=== PATIENT | female | born 1975 | race Caucasian/White ===

== ENCOUNTER 2020-09-09 13:01 | Inpatient (IN) | payer MEDICARE, MEDICAID ==
[~2020-09-09] VITALS: Ht 167.6 cm; Wt 120.4 kg
[2020-09-09] MEDS ORDERED: MAALOX/HYOSCYAMINE/LIDOCAINE 45 ML BTL PO ONE (14:00)
[2020-09-09] MEDS ORDERED: SODIUM CHLORIDE FLUSH 10ML SYR IVF ONE (14:00)
[2020-09-09] MEDS ORDERED: HYDROmorphone 1 MG/ML, 1ML INJ IV ONE (14:00)
[2020-09-09] MEDS ORDERED: ONDANSETRON 2MG/ML, 2ML IVPush ONE (14:00)
[2020-09-09] MEDS ORDERED: SODIUM CHLORIDE 0.9% 1,000ML IVBOLUS ONE (14:00)
[2020-09-09] MEDS ORDERED: MAALOX/HYOSCYAMINE/LIDOCAINE 45 ML BTL ONE (14:03)
[2020-09-09] MEDS ORDERED: ONDANSETRON 2MG/ML, 2ML ONE (14:03)
[2020-09-09] MEDS ORDERED: HYDROmorphone 1 MG/ML, 1ML INJ ONE ×3 (14:03→18:35)
--- NOTE | 2020-09-09 14:39 | NUR ---
PT ABLE TO PROVIDE STOOL SAMPLE. STOOL WALKED TO LAB. IV STARTED, BLOOD CULTURES DRAWN. ORDERED FLUIDS INFUSING AT THIS TIME. PT MEDICATED PER EMAR FOR PAIN. PT HAS URINE CUP FOR SAMPLE COLLECTION. WILL CONTINUE TO MONITOR.
[2020-09-09 14:44] LABS: BASOPHILS % (AUTO) 0 % (0-1); EOSINOPHILS % (AUTO) 1 % (1-7); LYMPHOCYTES % (AUTO) 7 % (22-44); MD NO; MEAN CORPUSCULAR HEMOGLOBIN 28.2 pg (27.0-34.8); MEAN CORPUSCULAR HGB CONC 33.4 g/dL (32.4-35.8); MEAN PLATELET VOLUME 8.1 fL (7.4-10.4); MONOCYTES % (AUTO) 3 % (2-9); NEUTROPHILS % (AUTO) 88 % (42-75); PLATELET COUNT 256 x10^3/uL (130-400); RED BLOOD COUNT 5.03 x10^6/uL (3.82-5.3); RED CELL DISTRIBUTION WIDTH 14.9 % (9.6-15.2)
[2020-09-09 14:50] LABS: ALANINE AMINOTRANSFERASE 36 U/L (12-78); ALBUMIN 3.4 g/dL (3.4-5.0); ANION GAP 6 mmol/L (5-15); CHLORIDE 111 mmol/L (98-107)
[2020-09-09 14:53] LABS: ALKALINE PHOSPHATASE 65 U/L (45-117); BILIRUBIN,TOTAL 0.5 mg/dL (0.2-1.0)
[2020-09-09 15:33] LABS: CLOSTRIDIUM DIFFICILE ANTIGEN NEGATIVE; CLOSTRIDIUM DIFFICILE TOXIN NEGATIVE (Negative); CRYPTOSPORIDIUM ANTIGEN Negative (Negative)
--- NOTE | 2020-09-09 15:44 | NUR ---
PT UP TO BATHROOM. PROVIDED URINE SAMPLE. URINE WALKED TO LAB.
[2020-09-09] MEDS ORDERED: LACTATED RINGERS 1,000 ML IV ONE ×2 (16:00)
--- NOTE | 2020-09-09 16:10 | NUR ---
PT MEDICATED FOR PAIN PER EMAR
--- NOTE | 2020-09-09 16:20 | NUR ---
PT JUST BACK FROM BATHROOM. PT HAS MADE MULTIPLE TRIPS TO BATHROOM, WILL GET PT A BEDSIDE COMMODE FOR FREQUENT STOOLING.
[2020-09-09 16:25] LABS: MICROSCOPIC INDICATED
[2020-09-09] MEDS ORDERED: HYDROmorphone 2 MG/ML, 1ML IVPush ONE ×2 (16:30→18:30)
--- NOTE | 2020-09-09 16:50 | NUR ---
BEDSIDE COMMODE IN PT ROOM. PT BP TAKEN MANUALLY, SEE CHARTED. ERP AWARE OF PT BP.
[2020-09-09] MEDS ORDERED: METRONIDAZOLE PMX 500MG/100ML 100 ML IV ONE (17:00)
[2020-09-09] MEDS ORDERED: CEFTRIAXONE 1,000 MG in DEXTROSE 5% 50 ML IVPB ONE ×2 (17:00→20:00)
[2020-09-09] MEDS ORDERED: METRONIDAZOLE PMX 500MG/100ML 100 ML ONE (17:31)
--- NOTE | 2020-09-09 17:34 | NUR ---
PT GOING TO CT NOW
[2020-09-09] MEDS ORDERED: OMNIPAQUE 350 MG/ML, 100ML BOTTLE ONE (17:45)
[2020-09-09] MEDS ORDERED: PROMETHAZINE 25 MG/ML, 1ML IM ONE (18:30)
[2020-09-09] MEDS ORDERED: hydrALAzine 20 MG/ML, 1ML IVPush PRN (18:30)
[2020-09-09] MEDS ORDERED: BISACODYL 10 MG SUPP PR PRN (18:30)
[2020-09-09] MEDS ORDERED: LORazepam 2 MG/ML, 1ML IVPush PRN (18:30)
[2020-09-09] MEDS ORDERED: POLYETHYLENE GLYCOL 17 GM PACKET PO PRN (18:30)
[2020-09-09] MEDS ORDERED: DOCUSATE 100 MG CAPSULE PO PRN (18:30)
[2020-09-09] MEDS ORDERED: ACETAMINOPHEN 325 MG TABLET PO PRN (18:30)
[2020-09-09] MEDS ORDERED: MELATONIN 5 MG TABLET PO PRN (18:30)
[2020-09-09] MEDS ORDERED: TEMAZEPAM 15 MG CAPSULE PO PRN (18:30)
[2020-09-09] MEDS ORDERED: PROMETHAZINE 25 MG/ML, 1ML ONE (18:35)
--- NOTE | 2020-09-09 18:40 | NUR ---
report given to kris schafer
[2020-09-09] MEDS ORDERED: NEBIVOLOL PO (18:59)
[2020-09-09] MEDS ORDERED: LEVO100T5 PO (18:59)
[2020-09-09] MEDS ORDERED: CHLORACON (18:59)
[2020-09-09] MEDS ORDERED: VALSARTAN PO (18:59)
[2020-09-09] MEDS ORDERED: DICL100T80 PO (18:59)
[2020-09-09] MEDS ORDERED: TRAMADOL (18:59)
[2020-09-09] MEDS ORDERED: FURO-93 PO (18:59)
[2020-09-09] MEDS ORDERED: RIVA20TA PO (18:59)
[2020-09-09] MEDS ORDERED: ORENCIA INJ (18:59)
[2020-09-09] MEDS ORDERED: HYDR200T72 PO (18:59)
[2020-09-09 19:45] VITALS: BP 126/72
[2020-09-09] MEDS: FAMOTIDINE 20 MG TABLET PO SCH (21:29)
[2020-09-09] MEDS: HYDROXYCHLOROQUINE 200 MG TABLET PO SCH (21:29)
[2020-09-09] MEDS: ONDANSETRON 2MG/ML, 2ML IVPush PRN (21:29)
[2020-09-09] MEDS: MORPHINE SULFATE 4 MG/ML, 1ML IVPush PRN (21:29)
[2020-09-09] MEDS: SODIUM CHLORIDE 0.9% 1,000 ML IV SCH (21:30)
[2020-09-09] MEDS ORDERED: HYDROCORTISONE 25 MG SUPP PR PRN (22:00)
[2020-09-09 22:20] LABS: HCT (SEDRATE) 36.1 % (34.6-47.8)
[2020-09-09] MEDS ORDERED: HYDROCORTISONE CRM 2.5%, 20GM TP PRN (22:30)
[2020-09-09] MEDS: OXYcodone IR 5MG TABLET PO PRN (23:29)
[2020-09-10] VITALS (9 sets, daily range): BP systolic 90–135; BP diastolic 47–75
[2020-09-10] MEDS: METRONIDAZOLE PMX 500MG/100ML 100 ML IV SCH ×2 (00:35→08:20)
[2020-09-10] MEDS: MORPHINE SULFATE 4 MG/ML, 1ML IVPush PRN ×5 (01:41→20:52)
[2020-09-10 04:50] LABS: BASOPHILS % (AUTO) 0 % (0-1); EOSINOPHILS % (AUTO) 0 % (1-7); LYMPHOCYTES % (AUTO) 13 % (22-44); MEAN CORPUSCULAR HEMOGLOBIN 28.2 pg (27.0-34.8); MEAN CORPUSCULAR HGB CONC 33.2 g/dL (32.4-35.8); MEAN PLATELET VOLUME 7.9 fL (7.4-10.4); MONOCYTES % (AUTO) 3 % (2-9); NEUTROPHILS % (AUTO) 83 % (42-75); PLATELET COUNT 206 x10^3/uL (130-400); RED BLOOD COUNT 4.35 x10^6/uL (3.82-5.3)
[2020-09-10 05:02] LABS: ANION GAP 7 mmol/L (5-15); CHLORIDE 111 mmol/L (98-107); CREATININE 1.25 mg/dL (0.55-1.02)
[2020-09-10] MEDS: ONDANSETRON 2MG/ML, 2ML IVPush PRN ×3 (05:03→20:52)
[2020-09-10 05:56] LABS: MD SCAN
[2020-09-10] MEDS: LEVOTHYROXINE 100 MCG TABLET PO SCH (06:37)
[2020-09-10] MEDS ORDERED: RIVAROXABAN 20 MG TABLET PO SCH (08:00)
[2020-09-10] MEDS: FAMOTIDINE 20 MG TABLET PO SCH (08:20)
[2020-09-10] MEDS: HYDROXYCHLOROQUINE 200 MG TABLET PO SCH ×2 (08:20→20:16)
[2020-09-10] MEDS: OXYcodone IR 5MG TABLET PO PRN (08:20)
[2020-09-10] MEDS ORDERED: CEFTRIAXONE IV SCH (09:00)
[2020-09-10] MEDS ORDERED: NEBIVOLOL HCL 5 MG TABLET PO SCH (09:00)
[2020-09-10] MEDS ORDERED: VALSARTAN 80 MG TABLET PO SCH (09:00)
[2020-09-10] MEDS ORDERED: FUROSEMIDE 20 MG TABLET PO SCH (09:00)
[2020-09-10] MEDS ORDERED: GOLYTELY 4,000ML ORAL.SOL PO ONE ×2 (10:00→15:30)
[2020-09-10] MEDS: SODIUM CHLORIDE 0.9% 1,000 ML IV SCH ×3 (10:06→22:37)
[2020-09-10] MEDS: ENOXAPARIN 120MG/0.8ML SQ SCH (15:32)
[2020-09-10] MEDS ORDERED: CEFTRIAXONE 2 GM in DEXTROSE 5% 50 ML IVPB SCH (17:30)
[2020-09-11 01:47] VITALS: BP 99/61
[2020-09-11] MEDS: MORPHINE SULFATE 4 MG/ML, 1ML IVPush PRN ×2 (02:00→06:00)
[2020-09-11] MEDS: ONDANSETRON 2MG/ML, 2ML IVPush PRN ×2 (02:00→06:00)
[2020-09-11] MEDS: ENOXAPARIN 120MG/0.8ML SQ SCH (02:03)
[2020-09-11] MEDS: SODIUM CHLORIDE 0.9% 1,000 ML IV SCH ×2 (04:27→09:30)
[2020-09-11] MEDS: LEVOTHYROXINE 100 MCG TABLET PO SCH (04:50)
[2020-09-11 07:36] VITALS: BP 91/60
[2020-09-11] MEDS: HYDROXYCHLOROQUINE 200 MG TABLET PO SCH (09:00)
[2020-09-11] MEDS ORDERED: NEBIVOLOL HCL 5 MG TABLET PO SCH (09:00)
[2020-09-11] MEDS ORDERED: VALSARTAN 80 MG TABLET PO SCH (09:00)
[2020-09-11] MEDS ORDERED: CHLORHEXIDINE 15 ML UDC ONE (10:56)
[2020-09-11] MEDS ORDERED: PROPOFOL 10 MG/ML, 20ML ONE ×4 (11:49→11:54)
[2020-09-11] MEDS ORDERED: hydrALAzine 20 MG/ML, 1ML IV PRN (12:30)
[2020-09-11] MEDS ORDERED: MIDAZOLAM 1 MG/ML, 2ML IV PRN (12:30)
[2020-09-11] MEDS ORDERED: HYDROmorphone 1 MG/ML, 1ML INJ IVPush PRN (12:30)
[2020-09-11] MEDS ORDERED: LABETALOL 5MG/ML, 20ML IV PRN (12:30)
[2020-09-11] MEDS ORDERED: DIPHENHYDRAMINE 50 MG/ML, 1ML IVPush PRN ×2 (12:30)
[2020-09-11] MEDS ORDERED: MEPERIDINE/PF 25MG/0.5ML IVPush PRN (12:30)
[2020-09-11] MEDS ORDERED: ONDANSETRON 2MG/ML, 2ML IVPush PRN (12:30)
[2020-09-11] MEDS ORDERED: ACETAMINOPHEN 325 MG TABLET PO PRN (12:30)
[2020-09-11] MEDS ORDERED: PROMETHAZINE 25 MG/ML, 1ML IVPush PRN (12:30)
[2020-09-11] MEDS ORDERED: FENTANYL PF 100 MCG/2ML IV PRN (12:30)
[2020-09-11] MEDS ORDERED: DIAZEPAM 5 MG/ML, 2ML IVPush PRN (12:30)
[2020-09-11] MEDS ORDERED: OXYcodone 5 MG/5 ML ORAL.SOL UDC PO PRN (12:30)
[2020-09-11] MEDS ORDERED: ALBUTEROL SULFATE 2.5 MG/3 ML NPPB PRN (12:30)
[2020-09-11] MEDS ORDERED: EPHEDRINE 50 MG/ML, 1ML IVPush PRN (12:30)
[2020-09-11] MEDS ORDERED: PROMETHAZINE 12.5 MG SUPP PR PRN (12:30)
[2020-09-11 13:00] VITALS: BP 109/72
[2020-09-11] MEDS: OXYcodone IR 5MG TABLET PO PRN (14:11)
[2020-09-11] MEDS ORDERED: OMEP20TA62 PO (14:14)
[2020-09-11] MEDS ORDERED: HYDR453.3 TP (14:14)
[2020-09-11] MEDS ORDERED: LOPE2CAP PO (14:16)
== END 2020-09-11 16:09 | disposition home or self-care (01) | DRG 384 ==
LOC: ED 15:03 → EDIP 18:08 → 3N 19:38
PROVIDERS: ADMIT Emergency Medicine; ATTEND Internal Medicine
PROC: 0DBE8ZX Excision of Large Intestine, Via Natural or Artificial Opening Endoscopic, Diagnostic (ICD-10-PCS; 2020-09-11)
PROC: 0DB68ZX Excision of Stomach, Via Natural or Artificial Opening Endoscopic, Diagnostic (ICD-10-PCS; principal; 2020-09-11 11:30)
DX: K25.9 Gastric ulcer, unspecified as acute or chronic, without hemorrhage or perforation (principal); D84.9 Immunodeficiency, unspecified; E87.2 Acidosis; Z68.41 Body mass index [BMI] 40.0-44.9, adult; D68.69 Other thrombophilia; K52.9 Noninfective gastroenteritis and colitis, unspecified; Z20.822 Contact with and (suspected) exposure to COVID-19; E66.9 Obesity, unspecified; K29.60 Other gastritis without bleeding; K64.9 Unspecified hemorrhoids; K57.30 Diverticulosis of large intestine without perforation or abscess without bleeding; M06.9 Rheumatoid arthritis, unspecified; N18.9 Chronic kidney disease, unspecified; L40.9 Psoriasis, unspecified; E66.01 Morbid (severe) obesity due to excess calories; I12.9 Hypertensive chronic kidney disease with stage 1 through stage 4 chronic kidney disease, or unspecified chronic kidney disease; R16.0 Hepatomegaly, not elsewhere classified; E03.9 Hypothyroidism, unspecified; M32.9 Systemic lupus erythematosus, unspecified; Z79.01 Long term (current) use of anticoagulants; Z86.711 Personal history of pulmonary embolism; Z86.718 Personal history of other venous thrombosis and embolism; Z87.891 Personal history of nicotine dependence
CPT/HCPCS: 36415; 74177; 80048; 80053; 81001; 81025; 82533; 82784; 83516; 83605; 83690; 83735; 83993; 84100; 84302; 84999; 85025; 85651; 86140; 86759; 87040; 87046; 87086; 87324; 87328; 87329; 87427; 87635; 88305; 89055; 96361; 96374; 96375; 96376; G0378; J0696; J1170; J1650; J2405; J2704; Q9967; J2270; J7030; J7120